=== PATIENT | male | born 1945 | race Caucasian/White ===

== ENCOUNTER 2016-05-17 12:01 | Outpatient (CLI) | payer MEDICARE ==
[2013-10-06 12:26] VITALS: BP 125/66
[2016-05-17 12:28] LABS: BASOPHILS % 0.3 (0.0-1.5); EOSINOPHILS % 1.7 % (0.0-6.8); LYMPHOCYTES # 1.9 # k/uL (0.6-4.0); MEAN CORPUSCULAR HEMOGLOBIN 31.4 pg (28.0-34.0); MONOCYTES # 0.5 # k/uL (0.0-0.9); MONOCYTES % 5.4 % (0.0-11.0); NEUTROPHILS # 6.8 # k/uL (1.4-7.7)
[2016-05-18 03:41] LABS: TESTOSTERONE TOTAL 275.1 ng/dL (193.0-740.0)
== END 2016-05-17 12:02 ==
LOC: LAB 12:01
PROVIDERS: ATTEND Family Medicine
DX: R53.83 Other fatigue (principal); R73.9 Hyperglycemia, unspecified
CPT/HCPCS: 36415; 83036; 84403; 84443; 85025

== ENCOUNTER 2017-05-15 09:57 | Outpatient (CLI) | payer MEDICARE ==
[2013-10-06 12:26] VITALS: BP 125/66
[2017-05-15 10:38] LABS: eGFR (African) > 60; eGFR (Non-African) > 60
== END 2017-05-15 10:00 ==
LOC: LAB 09:57
PROVIDERS: ATTEND Family Medicine
DX: I10 Essential (primary) hypertension (principal); R73.9 Hyperglycemia, unspecified
CPT/HCPCS: 36415; 80053; 80061; 83036

== ENCOUNTER 2017-12-03 11:16 | Outpatient (CLI) | payer MEDICARE ==
[2013-10-06 12:26] VITALS: BP 125/66
--- NOTE | 2017-12-03 18:48 | Diagnostic Imaging Report ---
[facility] [id number] [facility].[address] [address] Report Submission Date: Dec 03, 2017 6:26:18 PM CDT Patient Study Name: ANNMARIE NESS Date: Dec 03, 2017 11:29:14 AM CDT Modality Type: DX Gender: M Description: CHEST : 49 Institution: [facility] Physician: CHRISTOS URBINA Examination: PA and lateral chest. History: Evaluate lung stahl. PT STATES NON-PRODUCTIVE COUGH X1 MONTH, Hx OF PNEUMONIA AND PNEUMOTHORAX. Hx OF ASTHMA. (Hx) Comparison exam: None available. Findings: PA lateral chest demonstrate a normal cardiac and mediastinal silhouette. Vascular calcifications involving aortic arch. Elevated right hemidiaphragm. Chronic appearing interstitial changes, right greater than left. No blunting of the costophrenic margins. Old appearing right rib fracture. Acromioclavicular joint degenerative changes. Impression: Chronic parenchymal changes/scaring. No effusion. Correlation with older studies recommended if become available. Electronically signed on Dec 03, 2017 6:26:18 PM CDT by: Quan LEE
== END 2017-12-03 11:18 ==
LOC: RAD 11:16
PROVIDERS: ATTEND Family Medicine
DX: R05 Cough (principal)
CPT/HCPCS: 71046

== ENCOUNTER 2018-06-05 10:07 | Outpatient (CLI) | payer MEDICARE ==
[2013-10-06 12:26] VITALS: BP 125/66
[2018-06-05 11:05] LABS: eGFR (Non-African) > 60
== END 2018-06-05 10:15 ==
LOC: LAB 10:07
PROVIDERS: ATTEND Family Medicine
DX: I25.10 Atherosclerotic heart disease of native coronary artery without angina pectoris (principal)
CPT/HCPCS: 36415; 80053; 80061

== ENCOUNTER 2019-02-17 09:59 | Outpatient (CLI) | payer MEDICARE ==
[2013-10-06 12:26] VITALS: BP 125/66
[2019-02-17 10:41] LABS: HDL 90 mg/dL (>40); eGFR (Non-African) > 60
== END 2019-02-17 10:04 ==
LOC: LAB 09:59
PROVIDERS: ATTEND Family Medicine
DX: E78.5 Hyperlipidemia, unspecified (principal)
CPT/HCPCS: 36415; 80053; 80061